=== PATIENT | female | born 1965 | race Caucasian/White ===

== ENCOUNTER 2017-08-08 19:03 | Inpatient (IN) | payer OTHER ==
[~2017-08-08] VITALS: Ht 172.7 cm; Wt 91.3 kg
[~2017-08-08 19:03] MED LIST: OMEPRAZOLE PO
[2017-08-08] MEDS ORDERED: IPRATROPIUM BROMIDE 0.5 MG/2.5 ML NEB SOLUTION NEB ONE ×4 (19:27→21:00)
[2017-08-08] MEDS ORDERED: ALBUTEROL SULFATE 5 MG/ML 20 ML NEB SOLN [BULK] NEB ONE ×4 (19:27→21:00)
[2017-08-08] MEDS ORDERED: OMEP10 PO (19:28)
[2017-08-08] MEDS ORDERED: MethylPREDNISolone SOD SUCC 125 MG/2 ML VIAL IVP ONE (19:30)
[2017-08-08 20:17] LABS: BASOPHILS # (AUTO) 0.05 K/uL (0.00-0.20); BASOPHILS % (AUTO) 0.5 % (0.0-2.0); EOSINOPHILS # (AUTO) 0.13 K/uL (0.00-0.70); EOSINOPHILS % (AUTO) 1.42 % (1.0-6.0); HEMATOCRIT 49.3 % (36-46); HEMOGLOBIN 15.9 g/dL (12.0-16.0); LYMPHOCYTES # (AUTO) 2.4 K/uL (1.0-4.8); LYMPHOCYTES % (AUTO) 25.1 % (22.0-44.0); MEAN CORPUSCULAR HEMOGLOBIN 30.9 pg (26.0-34.0); MEAN CORPUSCULAR HGB CONC 32.3 G/dL (31.0-37.0); MEAN CORPUSCULAR VOLUME 96 fL (80-100); MONOCYTES # (AUTO) 0.4 K/uL (0.1-1.0); MONOCYTES % (AUTO) 3.7 % (2.0-9.0); NEUTROPHILS # (AUTO) 6.6 K/uL (1.8-7.7); NEUTROPHILS % (AUTO) 69.3 % (40.0-70.0); PLATELET COUNT (AUTO) 256 K/uL (150-450); RED BLOOD CELL COUNT(AUTO) 5.15 MIL/uL (4.00-5.20); RED CELL DISTRIBUTION WIDTH 14.2 % (11.5-14.5); WHITE BLOOD COUNT (AUTO) 9.5 K/uL (4.5-11.0)
[2017-08-08 20:26] LABS: ANION GAP 5 mmol/L (8-16); CALCIUM, TOTAL 9.5 mg/dL (8.8-10.5); CARBON DIOXIDE 35 mmol/L (22-29); CHLORIDE 101 mmol/L (98-107); CREATININE 0.55 mg/dL (0.60-1.30); GLOMERULAR FILTR. RATE CALC > 60 mL/min (>60); POTASSIUM 3.8 mmol/L (3.5-5.1); SODIUM SERUM 141 mmol/L (136-145); UREA NITROGEN, BLOOD 14 mg/dL (7-18)
[2017-08-08 20:44] LABS: B-TYPE NATRIURETIC PEPTIDE < 5 pg/mL (0-100)
[2017-08-08] MEDS ORDERED: MORPHINE SULFATE 4 MG/ML SYRINGE IVP ONE (20:45)
[2017-08-08] MEDS ORDERED: ONDANSETRON HCL 4 MG/2 ML VIAL IVP ONE (20:45)
[2017-08-08] MEDS ORDERED: SODIUM CHLORIDE 0.9% 100 ML ONE (20:45)
[2017-08-08] MEDS ORDERED: IOVERSOL 350 MG/ML 100 ML VIAL ONE (20:45)
[2017-08-08 20:52] LABS: ALANINE AMINOTRANSFERASE 27 U/L (12-78); ALBUMIN 3.9 g/dL (3.4-5.0); ASPARTATE AMINOTRANSFERASE 27 U/L (15-37); BILIRUBIN,TOTAL 0.2 mg/dL (0.1-1.0); CREATINE KINASE MB 5.2 ng/mL (0-5); CREATINE KINASE, TOTAL 167 U/L (26-192); TOTAL PROTEIN, SERUM 8.6 g/dL (6.4-8.2)
[2017-08-08 21:05] LABS: ABG A-A DIFF O2 25.7 mmHg (10-20.0); ABG BASE EXCESS 8.2 mmol/L (-2.0-3.0); ABG HCO3 29.8 mmol/L (22.0-26.0); ABG OXYHEMOGLOBIN 87.8 % (94.0-100.0); ABG PCO2 56 mmHg (35-45); ABG PH 7.387 (7.35-7.450); TEMPERATURE, FAHRENHEIT, BG 97.5 FAHREN (96.0-98.6)
[2017-08-08 21:06] LABS: ALLEN TEST, BLOOD GAS POS
[2017-08-08] MEDS ORDERED: ACETAMINOPHEN 325 MG TABLET PO PRN (22:15)
[2017-08-08] MEDS ORDERED: MAGNESIUM HYDROXIDE SUSPENSION 30 ML UDCUP PO PRN (22:15)
[2017-08-08 22:21] VITALS: BP 151/75
[2017-08-08] MEDS ORDERED: SODIUM CHLORIDE 0.9% 250 ML IV ONE (22:22)
[2017-08-08] MEDS: AZITHROMYCIN 500 MG/NS 250 ML IV SCH (23:26)
[2017-08-08] MEDS: MethylPREDNISolone SOD SUCC 125 MG/2 ML VIAL IVP SCH (23:26)
[2017-08-08] MEDS: HEPARIN SODIUM,PORCINE 5,000 UNITS/ML VIAL SQ SCH (23:26)
[2017-08-08] MEDS ORDERED: INFLUENZA VIRUS VACCINE QVS 2017-18 (3YR+)/PF 60 MCG/0.5 ML SYRINGE IM ONE (23:45)
[2017-08-08 23:59] VITALS: BP 138/77
[2017-08-09 04:43] VITALS: BP 102/51
[2017-08-09] MEDS: ONDANSETRON HCL 4 MG/2 ML VIAL IVP PRN ×2 (05:36→11:20)
[2017-08-09] MEDS: MethylPREDNISolone SOD SUCC 125 MG/2 ML VIAL IVP SCH ×4 (05:36→23:36)
[2017-08-09 07:18] VITALS: BP 111/63
[2017-08-09] MEDS: DOCUSATE SODIUM 100 MG CAPSULE PO SCH ×2 (08:19→21:22)
[2017-08-09] MEDS: PANTOPRAZOLE SODIUM 40 MG DR TABLET PO SCH (08:19)
[2017-08-09] MEDS: HEPARIN SODIUM,PORCINE 5,000 UNITS/ML VIAL SQ SCH ×3 (08:19→23:35)
[2017-08-09] MEDS: OxyCODONE HCL/ACETAMINOPHEN 5-325 MG TABLET PO PRN ×2 (08:26→11:20)
[2017-08-09] MEDS: BENZONATATE 100 MG CAPSULE PO SCH ×3 (11:29→23:35)
[2017-08-09] MEDS: HYDROCODONE/CHLORPHEN POLIS 10-8 MG/5 ML ORAL.SYG PO SCH ×2 (11:30→21:22)
[2017-08-09 12:08] VITALS: BP 132/65
[2017-08-09] MEDS ORDERED: METOCLOPRAMIDE HCL 5 MG/ML 2 ML VIAL IVP PRN (14:00)
[2017-08-09 15:33] VITALS: BP 102/57
[2017-08-09] MEDS: IBUPROFEN 400 MG TABLET PO PRN (18:04)
[2017-08-09 19:49] VITALS: BP 124/68
[2017-08-09] MEDS: BUDESONIDE 0.5 MG/2 ML NEB SOLUTION NEB SCH (20:58)
[2017-08-09] MEDS: AZITHROMYCIN 500 MG/NS 250 ML IV SCH (23:35)
[2017-08-09 23:47] VITALS: BP 116/65
[2017-08-10 05:12] VITALS: BP 112/53
[2017-08-10] MEDS: IBUPROFEN 400 MG TABLET PO PRN ×3 (06:21→17:28)
[2017-08-10] MEDS: MethylPREDNISolone SOD SUCC 125 MG/2 ML VIAL IVP SCH ×3 (06:23→17:28)
[2017-08-10 07:06] VITALS: BP 104/56
[2017-08-10] MEDS: OxyCODONE HCL/ACETAMINOPHEN 5-325 MG TABLET PO PRN ×2 (07:37→20:02)
[2017-08-10] MEDS: PANTOPRAZOLE SODIUM 40 MG DR TABLET PO SCH (08:48)
[2017-08-10] MEDS: HYDROCODONE/CHLORPHEN POLIS 10-8 MG/5 ML ORAL.SYG PO SCH (08:48)
[2017-08-10] MEDS: HEPARIN SODIUM,PORCINE 5,000 UNITS/ML VIAL SQ SCH ×2 (08:48→17:28)
[2017-08-10] MEDS: DOCUSATE SODIUM 100 MG CAPSULE PO SCH (08:48)
[2017-08-10] MEDS: BENZONATATE 100 MG CAPSULE PO SCH ×2 (08:48→17:28)
[2017-08-10 09:50] LABS: ABG A-A DIFF O2 21.4 mmHg (10-20.0); ABG BASE EXCESS 9.9 mmol/L (-2.0-3.0); ABG HCO3 28.9 mmol/L (22.0-26.0); ABG OXYHEMOGLOBIN 47.4 % (94.0-100.0); ABG PH 7.258 (7.35-7.450); TEMPERATURE, FAHRENHEIT, BG 98.3 FAHREN (96.0-98.6)
[2017-08-10] MEDS ORDERED: 0.9% SODIUM CHLORIDE 5 ML NEB SOLUTION NEB ONE (10:09)
[2017-08-10] MEDS: ALBUTEROL SULFATE 2.5 MG/0.5 ML NEB SOLUTION NEB PRN (10:19)
[2017-08-10] MEDS: BUDESONIDE 0.5 MG/2 ML NEB SOLUTION NEB SCH ×2 (10:19→19:16)
[2017-08-10 11:31] VITALS: BP 133/58
[2017-08-10] MEDS: LORazepam 1 MG TABLET PO PRN ×2 (14:57→20:02)
[2017-08-10 15:33] LABS: ABG PCO2 85 mmHg (35-45)
[2017-08-10 15:35] LABS: ALLEN TEST, BLOOD GAS Positive
[2017-08-10] MEDS: IPRATROPIUM BROMIDE 0.5 MG/2.5 ML NEB SOLUTION NEB SCH ×3 (15:35→23:09)
[2017-08-10] MEDS: ALBUTEROL SULFATE 2.5 MG/0.5 ML NEB SOLUTION NEB SCH ×3 (15:35→23:08)
[2017-08-10 16:18] VITALS: BP 111/49
[2017-08-10 19:58] VITALS: BP 127/61
[2017-08-10 21:38] LABS: ABG A-A DIFF O2 59.9 mmHg (10-20.0); ABG BASE EXCESS 10.2 mmol/L (-2.0-3.0); ABG HCO3 30.4 mmol/L (22.0-26.0); ABG OXYHEMOGLOBIN 89.3 % (94.0-100.0); ABG PH 7.244 (7.35-7.450); TEMPERATURE, FAHRENHEIT, BG 97.9 FAHREN (96.0-98.6)
[2017-08-10 21:39] LABS: ABG PCO2 88 mmHg (35-45); ALLEN TEST, BLOOD GAS Positive
[2017-08-11] VITALS (8 sets, daily range): BP systolic 101–149; BP diastolic 47–77
[2017-08-11] MEDS: AZITHROMYCIN 500 MG/NS 250 ML IV SCH ×2 (00:12→23:09)
[2017-08-11] MEDS: HYDROCODONE/CHLORPHEN POLIS 10-8 MG/5 ML ORAL.SYG PO SCH ×3 (00:12→20:06)
[2017-08-11] MEDS: DOCUSATE SODIUM 100 MG CAPSULE PO SCH ×3 (00:12→20:06)
[2017-08-11] MEDS: MethylPREDNISolone SOD SUCC 125 MG/2 ML VIAL IVP SCH ×5 (00:13→23:09)
[2017-08-11] MEDS: HEPARIN SODIUM,PORCINE 5,000 UNITS/ML VIAL SQ SCH ×4 (00:13→23:09)
[2017-08-11] MEDS: BENZONATATE 100 MG CAPSULE PO SCH ×4 (00:13→23:09)
[2017-08-11] MEDS: IPRATROPIUM BROMIDE 0.5 MG/2.5 ML NEB SOLUTION NEB SCH ×6 (03:20→22:52)
[2017-08-11] MEDS: OxyCODONE HCL/ACETAMINOPHEN 5-325 MG TABLET PO PRN ×3 (04:53→22:38)
[2017-08-11] MEDS: LORazepam 1 MG TABLET PO PRN ×3 (04:53→21:41)
[2017-08-11] MEDS: PANTOPRAZOLE SODIUM 40 MG DR TABLET PO SCH (08:21)
[2017-08-11] MEDS: ALBUTEROL SULFATE 2.5 MG/0.5 ML NEB SOLUTION NEB SCH ×5 (08:43→22:52)
[2017-08-11] MEDS: BUDESONIDE 0.5 MG/2 ML NEB SOLUTION NEB SCH ×2 (08:43→21:45)
[2017-08-11 20:57] LABS: ABG A-A DIFF O2 87.2 mmHg (10-20.0); ABG BASE EXCESS 14.7 mmol/L (-2.0-3.0); ABG HCO3 35.3 mmol/L (22.0-26.0); ABG OXYHEMOGLOBIN 93.2 % (94.0-100.0); ABG PCO2 74 mmHg (35-45); ABG PH 7.354 (7.35-7.450); ALLEN TEST, BLOOD GAS Positive; TEMPERATURE, FAHRENHEIT, BG 98.4 FAHREN (96.0-98.6)
[2017-08-11 20:58] LABS: IPAP, BG 16 cm H2O
[2017-08-12] MEDS: LORazepam 1 MG TABLET PO PRN ×2 (01:44→18:56)
[2017-08-12] MEDS: IPRATROPIUM BROMIDE 0.5 MG/2.5 ML NEB SOLUTION NEB SCH ×6 (03:26→23:18)
[2017-08-12 04:12] VITALS: BP 132/59
[2017-08-12] MEDS: MethylPREDNISolone SOD SUCC 125 MG/2 ML VIAL IVP SCH ×3 (06:06→18:03)
[2017-08-12 06:40] LABS: ALANINE AMINOTRANSFERASE 50 U/L (12-78); ALBUMIN 3.1 g/dL (3.4-5.0); ANION GAP 0 mmol/L (8-16); ASPARTATE AMINOTRANSFERASE 20 U/L (15-37); BILIRUBIN,TOTAL 0.3 mg/dL (0.1-1.0); CALCIUM, TOTAL 8.7 mg/dL (8.8-10.5); CARBON DIOXIDE 39 mmol/L (22-29); CHLORIDE 99 mmol/L (98-107); CREATININE 0.43 mg/dL (0.60-1.30); GLOMERULAR FILTR. RATE CALC > 60 mL/min (>60); POTASSIUM 4.7 mmol/L (3.5-5.1); SODIUM SERUM 138 mmol/L (136-145); TOTAL PROTEIN, SERUM 7.1 g/dL (6.4-8.2); UREA NITROGEN, BLOOD 21 mg/dL (7-18)
[2017-08-12 07:28] VITALS: BP 127/79
[2017-08-12] MEDS: BUDESONIDE 0.5 MG/2 ML NEB SOLUTION NEB SCH ×2 (07:54→20:11)
[2017-08-12] MEDS: ALBUTEROL SULFATE 2.5 MG/0.5 ML NEB SOLUTION NEB SCH ×5 (07:54→23:18)
[2017-08-12] MEDS: BENZONATATE 100 MG CAPSULE PO SCH ×3 (08:31→23:46)
[2017-08-12] MEDS: PANTOPRAZOLE SODIUM 40 MG DR TABLET PO SCH (08:31)
[2017-08-12] MEDS: HYDROCODONE/CHLORPHEN POLIS 10-8 MG/5 ML ORAL.SYG PO SCH ×2 (08:31→20:39)
[2017-08-12] MEDS: DOCUSATE SODIUM 100 MG CAPSULE PO SCH ×2 (08:31→20:39)
[2017-08-12] MEDS: HEPARIN SODIUM,PORCINE 5,000 UNITS/ML VIAL SQ SCH ×3 (08:34→23:47)
[2017-08-12 11:05] VITALS: BP 142/77
[2017-08-12 15:20] VITALS: BP 109/61
[2017-08-12] MEDS ORDERED: KETOROLAC TROMETHAMINE 15 MG/ML VIAL IVP PRN (17:30)
[2017-08-12 20:13] VITALS: BP 103/63
[2017-08-12 23:37] VITALS: BP 116/77
[2017-08-12] MEDS: AZITHROMYCIN 500 MG/NS 250 ML IV SCH (23:47)
[2017-08-12] MEDS: QUEtiapine FUMARATE 25 MG TABLET PO SCH (23:47)
[2017-08-12] MEDS: MethylPREDNISolone SOD SUCC 40 MG/ML VIAL IVP SCH (23:47)
[2017-08-13] MEDS: TEMAZEPAM 7.5 MG CAPSULE PO PRN ×2 (00:45→23:24)
[2017-08-13] MEDS: IPRATROPIUM BROMIDE 0.5 MG/2.5 ML NEB SOLUTION NEB SCH ×6 (03:00→23:17)
[2017-08-13] MEDS ORDERED: SODIUM CHLORIDE 0.9% 100 ML ONE (03:18)
[2017-08-13 03:52] VITALS: BP 114/72
[2017-08-13] MEDS: MethylPREDNISolone SOD SUCC 40 MG/ML VIAL IVP SCH ×4 (06:06→23:23)
[2017-08-13] MEDS: LORazepam 1 MG TABLET PO PRN (06:11)
[2017-08-13 06:39] LABS: ANION GAP 1 mmol/L (8-16); CALCIUM, TOTAL 8.7 mg/dL (8.8-10.5); CARBON DIOXIDE 39 mmol/L (22-29); CHLORIDE 99 mmol/L (98-107); CREATININE 0.44 mg/dL (0.60-1.30); GLOMERULAR FILTR. RATE CALC > 60 mL/min (>60); POTASSIUM 5.2 mmol/L (3.5-5.1); SODIUM SERUM 139 mmol/L (136-145); UREA NITROGEN, BLOOD 15 mg/dL (7-18)
[2017-08-13 07:13] VITALS: BP 109/51
[2017-08-13] MEDS: ALBUTEROL SULFATE 2.5 MG/0.5 ML NEB SOLUTION NEB SCH ×5 (07:26→23:17)
[2017-08-13] MEDS: BUDESONIDE 0.5 MG/2 ML NEB SOLUTION NEB SCH ×2 (08:41→20:19)
[2017-08-13] MEDS: DOCUSATE SODIUM 100 MG CAPSULE PO SCH ×2 (09:05→20:48)
[2017-08-13] MEDS: HEPARIN SODIUM,PORCINE 5,000 UNITS/ML VIAL SQ SCH ×3 (09:05→23:24)
[2017-08-13] MEDS: PANTOPRAZOLE SODIUM 40 MG DR TABLET PO SCH (09:05)
[2017-08-13] MEDS: BENZONATATE 100 MG CAPSULE PO SCH ×3 (09:05→23:24)
[2017-08-13] MEDS: HYDROCODONE/CHLORPHEN POLIS 10-8 MG/5 ML ORAL.SYG PO SCH ×2 (09:07→20:48)
[2017-08-13 11:31] VITALS: BP 127/82
[2017-08-13 12:01] LABS: ABG A-A DIFF O2 133.2 mmHg (10-20.0); ABG BASE EXCESS 16.4 mmol/L (-2.0-3.0); ABG HCO3 36.8 mmol/L (22.0-26.0); ABG OXYHEMOGLOBIN 92.8 % (94.0-100.0); ABG PH 7.394 (7.35-7.450); TEMPERATURE, FAHRENHEIT, BG 97.8 FAHREN (96.0-98.6)
[2017-08-13 12:02] LABS: ABG PCO2 69 mmHg (35-45); ALLEN TEST, BLOOD GAS Positive
[2017-08-13] MEDS ORDERED: SODIUM POLYSTYRENE SULFONATE 15 GM/60 ML SUSPENSION BOTTLE PO ONE (14:15)
[2017-08-13 16:19] VITALS: BP 109/54
[2017-08-13 19:50] VITALS: BP 112/72
[2017-08-13] MEDS: QUEtiapine FUMARATE 25 MG TABLET PO SCH (20:48)
[2017-08-13] MEDS: AZITHROMYCIN 500 MG/NS 250 ML IV SCH (23:24)
[2017-08-13 23:52] VITALS: BP 103/59
[2017-08-14] MEDS: IPRATROPIUM BROMIDE 0.5 MG/2.5 ML NEB SOLUTION NEB SCH ×6 (03:00→23:04)
[2017-08-14 04:30] VITALS: BP 116/69
[2017-08-14] MEDS: MethylPREDNISolone SOD SUCC 40 MG/ML VIAL IVP SCH ×3 (05:28→20:17)
[2017-08-14 06:44] LABS: ANION GAP 3 mmol/L (8-16); CALCIUM, TOTAL 8.3 mg/dL (8.8-10.5); CARBON DIOXIDE 38 mmol/L (22-29); CHLORIDE 98 mmol/L (98-107); CREATININE 0.47 mg/dL (0.60-1.30); GLOMERULAR FILTR. RATE CALC > 60 mL/min (>60); PHOSPHORUS 3.5 mg/dL (2.5-4.9); POTASSIUM 4.3 mmol/L (3.5-5.1); SODIUM SERUM 139 mmol/L (136-145); THYROID STIMULATING HORMONE 1.08 uIU/mL (0.36-3.74); UREA NITROGEN, BLOOD 15 mg/dL (7-18)
[2017-08-14 07:17] VITALS: BP 112/56
[2017-08-14] MEDS: BUDESONIDE 0.5 MG/2 ML NEB SOLUTION NEB SCH ×2 (08:09→19:43)
[2017-08-14] MEDS: ALBUTEROL SULFATE 2.5 MG/0.5 ML NEB SOLUTION NEB SCH ×5 (08:09→23:05)
[2017-08-14] MEDS: BENZONATATE 100 MG CAPSULE PO SCH ×2 (08:56→17:28)
[2017-08-14] MEDS: DOCUSATE SODIUM 100 MG CAPSULE PO SCH ×2 (08:57→20:17)
[2017-08-14] MEDS: HYDROCODONE/CHLORPHEN POLIS 10-8 MG/5 ML ORAL.SYG PO SCH ×2 (08:57→20:17)
[2017-08-14] MEDS: HEPARIN SODIUM,PORCINE 5,000 UNITS/ML VIAL SQ SCH ×2 (08:57→17:28)
[2017-08-14] MEDS: PANTOPRAZOLE SODIUM 40 MG DR TABLET PO SCH (08:58)
[2017-08-14] MEDS: IBUPROFEN 400 MG TABLET PO PRN ×2 (10:45→17:28)
[2017-08-14 11:35] VITALS: BP 138/81
[2017-08-14 12:15] LABS: ABG A-A DIFF O2 54.1 mmHg (10-20.0); ABG BASE EXCESS 12.9 mmol/L (-2.0-3.0); ABG HCO3 33.6 mmol/L (22.0-26.0); ABG OXYHEMOGLOBIN 90.4 % (94.0-100.0); ABG PH 7.369 (7.35-7.450); TEMPERATURE, FAHRENHEIT, BG 98.6 FAHREN (96.0-98.6)
[2017-08-14 12:18] LABS: ABG PCO2 68 mmHg (35-45)
[2017-08-14 12:19] LABS: ALLEN TEST, BLOOD GAS Positive
[2017-08-14 16:12] VITALS: BP 125/61
[2017-08-14 19:54] VITALS: BP 123/71
[2017-08-14] MEDS: QUEtiapine FUMARATE 25 MG TABLET PO SCH (20:17)
[2017-08-14 23:29] VITALS: BP 103/60
[2017-08-15] MEDS: BENZONATATE 100 MG CAPSULE PO SCH ×4 (00:25→23:02)
[2017-08-15] MEDS: MethylPREDNISolone SOD SUCC 40 MG/ML VIAL IVP SCH ×5 (00:25→23:02)
[2017-08-15] MEDS: HEPARIN SODIUM,PORCINE 5,000 UNITS/ML VIAL SQ SCH ×4 (00:25→23:02)
[2017-08-15] MEDS: AZITHROMYCIN 500 MG/NS 250 ML IV SCH ×2 (00:25→23:02)
[2017-08-15] MEDS: TEMAZEPAM 7.5 MG CAPSULE PO PRN ×2 (00:26→23:02)
[2017-08-15] MEDS: ALBUTEROL SULFATE 2.5 MG/0.5 ML NEB SOLUTION NEB PRN (02:41)
[2017-08-15] MEDS: IPRATROPIUM BROMIDE 0.5 MG/2.5 ML NEB SOLUTION NEB SCH ×6 (02:41→23:20)
[2017-08-15 05:39] VITALS: BP 141/92
[2017-08-15 07:16] VITALS: BP 157/61
[2017-08-15] MEDS: BUDESONIDE 0.5 MG/2 ML NEB SOLUTION NEB SCH ×2 (08:22→19:16)
[2017-08-15] MEDS: ALBUTEROL SULFATE 2.5 MG/0.5 ML NEB SOLUTION NEB SCH ×5 (08:22→23:20)
[2017-08-15] MEDS: DOCUSATE SODIUM 100 MG CAPSULE PO SCH ×2 (09:00→21:40)
[2017-08-15] MEDS: PANTOPRAZOLE SODIUM 40 MG DR TABLET PO SCH (09:01)
[2017-08-15] MEDS: HYDROCODONE/CHLORPHEN POLIS 10-8 MG/5 ML ORAL.SYG PO SCH ×2 (09:01→21:40)
[2017-08-15 09:43] LABS: ABG A-A DIFF O2 24.7 mmHg (10-20.0); ABG BASE EXCESS 10.6 mmol/L (-2.0-3.0); ABG OXYHEMOGLOBIN 87.6 % (94.0-100.0); ABG PCO2 58 mmHg (35-45); ABG PH 7.399 (7.35-7.450)
[2017-08-15 09:45] LABS: ALLEN TEST, BLOOD GAS Positive
[2017-08-15 11:23] VITALS: BP 131/74
[2017-08-15 15:29] VITALS: BP 140/82
[2017-08-15 19:04] LABS: ABG A-A DIFF O2 26.3 mmHg (10-20.0); ABG BASE EXCESS 11.1 mmol/L (-2.0-3.0); ABG HCO3 32.4 mmol/L (22.0-26.0); ABG OXYHEMOGLOBIN 87.2 % (94.0-100.0); ABG PCO2 58 mmHg (35-45); ABG PH 7.411 (7.35-7.450); TEMPERATURE, FAHRENHEIT, BG 98.6 FAHREN (96.0-98.6)
[2017-08-15 19:05] LABS: ALLEN TEST, BLOOD GAS Positive
[2017-08-15 20:29] VITALS: BP 142/79
[2017-08-15] MEDS: QUEtiapine FUMARATE 25 MG TABLET PO SCH (21:40)
[2017-08-16] VITALS (7 sets, daily range): BP systolic 98–137; BP diastolic 57–80
[2017-08-16] MEDS: ALBUTEROL SULFATE 2.5 MG/0.5 ML NEB SOLUTION NEB PRN (02:46)
[2017-08-16] MEDS: IPRATROPIUM BROMIDE 0.5 MG/2.5 ML NEB SOLUTION NEB SCH ×6 (02:46→22:55)
[2017-08-16] MEDS: MethylPREDNISolone SOD SUCC 40 MG/ML VIAL IVP SCH (05:08)
[2017-08-16] MEDS: ALBUTEROL SULFATE 2.5 MG/0.5 ML NEB SOLUTION NEB SCH ×5 (08:19→22:55)
[2017-08-16] MEDS: BUDESONIDE 0.5 MG/2 ML NEB SOLUTION NEB SCH ×2 (08:19→20:00)
[2017-08-16] MEDS: DOCUSATE SODIUM 100 MG CAPSULE PO SCH ×2 (08:43→21:35)
[2017-08-16] MEDS: BENZONATATE 100 MG CAPSULE PO SCH ×2 (08:43→16:19)
[2017-08-16] MEDS: PANTOPRAZOLE SODIUM 40 MG DR TABLET PO SCH (08:43)
[2017-08-16] MEDS: HYDROCODONE/CHLORPHEN POLIS 10-8 MG/5 ML ORAL.SYG PO SCH ×2 (08:43→21:35)
[2017-08-16] MEDS: HEPARIN SODIUM,PORCINE 5,000 UNITS/ML VIAL SQ SCH ×2 (08:44→16:19)
[2017-08-16] MEDS: OxyCODONE HCL/ACETAMINOPHEN 5-325 MG TABLET PO PRN (08:45)
[2017-08-16] MEDS: OXYGEN THERAPY IH SCH ×2 (08:49→19:47)
[2017-08-16] MEDS: PredniSONE 10 MG TABLET PO SCH (10:15)
[2017-08-16] MEDS ORDERED: DEXTROSE 50%-WATER 25 GM/50 ML SYRINGE IVP PRN (10:30)
[2017-08-16 11:25] LABS: ABG A-A DIFF O2 21.2 mmHg (10-20.0); ABG BASE EXCESS 11.6 mmol/L (-2.0-3.0); ABG HCO3 32.8 mmol/L (22.0-26.0); ABG PCO2 61 mmHg (35-45); ABG PH 7.398 (7.35-7.450); ALLEN TEST, BLOOD GAS POSITIVE; TEMPERATURE, FAHRENHEIT, BG 98.6 FAHREN (96.0-98.6)
[2017-08-16 11:57] LABS: GLUCOSE,POINT OF CARE 108 MG/DL (70-110)
[2017-08-16 16:48] LABS: GLUCOSE COMMENT 1 Received Meds; GLUCOSE,POINT OF CARE 165 MG/DL (70-110)
[2017-08-16] MEDS: INSULIN ASPART 100 UNITS/ML SQ PRN ×2 (17:28→21:41)
[2017-08-16] MEDS: LORazepam 1 MG TABLET PO PRN (21:35)
[2017-08-16] MEDS: QUEtiapine FUMARATE 25 MG TABLET PO SCH (22:10)
[2017-08-16] MEDS: AZITHROMYCIN 500 MG/NS 250 ML IV SCH (23:00)
[2017-08-16] MEDS: TEMAZEPAM 7.5 MG CAPSULE PO PRN (23:57)
[2017-08-17] MEDS: BENZONATATE 100 MG CAPSULE PO SCH ×2 (00:15→08:32)
[2017-08-17] MEDS: HEPARIN SODIUM,PORCINE 5,000 UNITS/ML VIAL SQ SCH ×2 (00:16→08:31)
[2017-08-17] MEDS: IPRATROPIUM BROMIDE 0.5 MG/2.5 ML NEB SOLUTION NEB SCH ×4 (03:10→16:55)
[2017-08-17] MEDS: ALBUTEROL SULFATE 2.5 MG/0.5 ML NEB SOLUTION NEB PRN (03:12)
[2017-08-17 04:40] VITALS: BP 105/51
[2017-08-17] MEDS: OxyCODONE HCL/ACETAMINOPHEN 5-325 MG TABLET PO PRN (06:56)
[2017-08-17] MEDS: ALBUTEROL SULFATE 2.5 MG/0.5 ML NEB SOLUTION NEB SCH ×3 (08:11→16:55)
[2017-08-17] MEDS: BUDESONIDE 0.5 MG/2 ML NEB SOLUTION NEB SCH (08:11)
[2017-08-17 08:23] VITALS: BP 121/81
[2017-08-17] MEDS: OXYGEN THERAPY IH SCH (08:31)
[2017-08-17] MEDS: HYDROCODONE/CHLORPHEN POLIS 10-8 MG/5 ML ORAL.SYG PO SCH (08:32)
[2017-08-17] MEDS: PANTOPRAZOLE SODIUM 40 MG DR TABLET PO SCH (08:32)
[2017-08-17] MEDS: PredniSONE 10 MG TABLET PO SCH (08:32)
[2017-08-17] MEDS: DOCUSATE SODIUM 100 MG CAPSULE PO SCH (08:33)
[2017-08-17 11:36] LABS: GLUCOSE COMMENT 1 Received Meds; GLUCOSE,POINT OF CARE 165 MG/DL (70-110)
[2017-08-17 11:46] VITALS: BP 134/66
[2017-08-17 11:47] LABS: GLUCOSE,POINT OF CARE 132 MG/DL (70-110)
[2017-08-17 12:50] LABS: GLUCOSE,POINT OF CARE 126 MG/DL (70-110)
[2017-08-17 16:24] VITALS: BP 125/76
[2017-08-17] MEDS ORDERED: PERCT PO (17:17)
[2017-08-17] MEDS ORDERED: PRED5 PO (17:18)
[2017-08-17] MEDS ORDERED: IPRA4AER IH (17:22)
[2017-08-17] MEDS ORDERED: BENZ-51 PO (17:22)
[2017-08-17] MEDS ORDERED: BUDE180H IH (17:24)
== END 2017-08-17 18:05 | disposition home or self-care (01) | DRG 133 ==
LOC: EMS 19:05 → 5S 21:30 → 5N 08-15 20:20 → 6N 08-16 02:15
PROVIDERS: ADMIT Internal Medicine; ATTEND Internal Medicine
PROC: 3E0234Z Introduction of Serum, Toxoid and Vaccine into Muscle, Percutaneous Approach (ICD-10-PCS; principal; 2017-08-08)
DX: J96.21 Acute and chronic respiratory failure with hypoxia (principal); J44.1 Chronic obstructive pulmonary disease with (acute) exacerbation; E66.2 Morbid (severe) obesity with alveolar hypoventilation; M41.9 Scoliosis, unspecified; Z99.81 Dependence on supplemental oxygen; G60.0 Hereditary motor and sensory neuropathy; K21.9 Gastro-esophageal reflux disease without esophagitis; J98.6 Disorders of diaphragm; J96.22 Acute and chronic respiratory failure with hypercapnia; F17.210 Nicotine dependence, cigarettes, uncomplicated; G43.909 Migraine, unspecified, not intractable, without status migrainosus; H53.129 Transient visual loss, unspecified eye; Z91.19 Patient's noncompliance with other medical treatment and regimen; Z23 Encounter for immunization
CPT/HCPCS: 70450; 71020; 71275; 82805; 82962; 83036; 83735; 84100; 84443; 85379; 87040; 90471; 93005; 93880; 94640; 94644; 94660; 96374; 96375; 97162; 97166; 97530; 97535; 99291; J0456; J1644; J1885; J2270; J2405; J2765; J2920; J2930; J7050